=== PATIENT | female | born 1940 | race Caucasian/White ===

== ENCOUNTER → 2018-02-28 | Outpatient (CLI) | payer OTHER, MEDICARE ==
[~2018-02-28] VITALS: Ht 152.4 cm; Wt 54.4 kg
[~2018-02-28] MED LIST: ALENDRONATE SOD70 MG PO; AMLODIPINE BESY10 MG PO; ASPIR 8181 MG PO; CULTURELLE CAP1 EAC1 PO; LIPITOR 20 MG T20 M1 PO; LOPERAMIDE 2 MG2 M1 PO; MIRTAZAPINE7.5 MG PO; MULTIVITAMINS PO; PAROXETINE HCL40 MG PO; PREDNISONE 5 MG5 M1 PO; PROTONIX40 M1 PO; VALSARTAN160 MG PO
--- NOTE | ~2018-02-28 | HPC ---
[facility] [address] [place] [address] PAIN MANAGEMENT CONSULTATION Name: JV JARVIS [facility] [id number] Admission: 02/28/18 Attend Phys: Uday Yadav MD Discharge: Date of : 36 Report #: [id number] THIS REPORT FOR: //name// CC: Jayme KRAMER Physician staff Uday Yadav DATE OF SERVICE: 02/28/2018 CHIEF COMPLAINT: Thoracic back pain. The patient is a sturdy 77-year-old female who has been through a lot over the course of the last 24 months. She was diagnosed with myasthenia gravis a year or two ago. She was found to have a thymoma and this was resected in 2018. She was hospitalized for an extended period. She was in the ICU. 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 When she was first diagnosed with myasthenia, she was placed on high doses of steroids. She suffered the inevitable osteoporosis and has been struggling with compression fractures over the course of the last 6-8 months. The compression fractures are painful, but hopefully they are going through their course and she has had decreasing pain since making the appointment. Her pain score today is a 4/10 in the mid thoracic area just to the left of midline around T6. It is worse with some activities. Weightbearing is particularly challenging and any sort of aerobic exercise causes her to be short of breath, more than likely due to the left phrenic nerve injury and the left diaphragmatic paralysis. Her only medication for pain is Aleve. She is reluctant to take anything else because of the heavily publicized opioid risk. We did not pursue the taking of stronger medications since she stoically is getting along with the Aleve and is improving as her compression fractures heal. MEDICATIONS: Alendronate, atorvastatin, amlodipine, aspirin, Imodium, pantoprazole, paroxetine, prednisone 5 mg daily, valsartan, mirtazapine 7.5 mg as needed at night for sleep and multivitamins. ALLERGIES: None. PAST MEDICAL HISTORY: Remarkable for the recent events described in the history of present illness. She has had a cholecystectomy and a tonsillectomy. She is treated for hypertension. She has had some emotional problems including depression and has been treated. She has diffuse osteoarthritis involving the upper extremity, particularly the shoulders. [facility] [address] [place] [address] PAIN MANAGEMENT CONSULTATION Name: JV JARVIS Room #: REG CLI [facility].#: [id number] Admission: 02/28/18 Attend Phys: Uday Yadav MD Discharge: Date of : 36 Report #: [id number] SOCIAL HISTORY: She is a retired teacher. She lives independently with her . She does not smoke nor use alcohol. REVIEW OF SYSTEMS: Completed by the patient is positive for fatigue, weakness, weight loss, blurred vision, hearing loss, dyspnea on exertion, shortness of breath, orthopnea, chronic cough, loss of appetite, nocturia, some incontinence and dribbling. She has suffered from memory loss, nervousness, depression and insomnia since her ICU stay. PHYSICAL EXAMINATION: GENERAL: She was pleasant during my visit without significant signs of dementia or memory loss. VITAL SIGNS: Her blood pressure is 126/64, heart rate 99, respirations 14, and oxygen saturation on room air diminished at 94%. She is 5 feet tall and 120 pounds with a BMI of 23. CHEST: Clear on the right. She has diminished breath sounds throughout the left chest due to diaphragmatic paralysis. CARDIAC: Rhythm is regular. I could not appreciate a murmur. ABDOMEN: Soft. EXTREMITIES: Free of edema. She moves all extremities evenly. BACK: Examination of the spine reveals localized tenderness in the area of the mid thoracic spine between the scapula and pain radiating to the left almost to the mid scapular border, but no further, localized tenderness. IMAGING: X-rays confirm that she has had compression fractures at several levels in the upper thoracic region. These are now 2-3 months old and are not treatable with kyphoplasty. IMPRESSION: 1. Chronic back pain related to compression fractures. 2. Myasthenia gravis, treated by thymoma. 3. Osteoporosis related to treatment by high-dose steroids. 4. 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 5. Osteoarthritis. 6. Gastroesophageal reflux disease. RECOMMENDATION: 1. Physical therapy for some stamina and strengthening. We hope that it will help with gait training, improved posture and weightbearing. 2. Consider the use of Salonpas or topical measures. [address] [address] PAIN MANAGEMENT CONSULTATION Name: JV JARVIS [id number] Admission: 02/28/18 Attend Phys: Uday Yadav MD Discharge: Date of : 36 Report #: [id number] 3. Continue Aleve as it is helpful, watching carefully for nonsteroidal anti-inflammatory drugs side effects. By: [id number] Uday Yadav MD /carol
[2018-02-28 14:02] VITALS: BP 126/64
== END ==
LOC: PAIN 07:16
DX: M47.814 Spondylosis without myelopathy or radiculopathy, thoracic region (principal); M54.6 Pain in thoracic spine; G89.29 Other chronic pain; M81.0 Age-related osteoporosis without current pathological fracture; K21.9 Gastro-esophageal reflux disease without esophagitis; G70.00 Myasthenia gravis without (acute) exacerbation